=== PATIENT | male | born 1945 | race Two or more races ===

== ENCOUNTER 2017-09-18 14:19 | Inpatient (IN) | payer MEDICARE ==
[~2017-09-18] VITALS: Ht 180.3 cm; Wt 78.0 kg
[2017-09-18 14:46] LABS: BASOPHILS # (AUTO) 0.1 /CMM (0.0-0.2); BASOPHILS % (AUTO) 0.8 % (0.0-2.0); EOSINOPHILS # (AUTO) 0.4 /CMM (0.0-0.7); EOSINOPHILS % (AUTO) 4.1 % (0.0-6.0); HEMATOCRIT 44 % (39-51); HEMOGLOBIN 15.2 g/dL (13.5-17.5); LYMPHOCYTES # (AUTO) 1.3 /CMM (0.8-4.8); LYMPHOCYTES % (AUTO) 14.9 % (20.0-44.0); MEAN CORPUSCULAR HEMOGLOBIN 29 PG (26.0-33.0); MEAN CORPUSCULAR HGB CONC 34 g/dl (31.0-36.0); MEAN CORPUSCULAR VOLUME 86 fL (80-96); MONOCYTES # (AUTO) 0.5 /CMM (0.1-1.30); MONOCYTES % (AUTO) 5.8 % (2.0-12.0); NEUTROPHILS # (AUTO) 6.3 /CMM (1.8-8.9); NEUTROPHILS % (AUTO) 74.4 % (43.0-81.0); PLATELET COUNT (AUTO) 226 /CMM (150-450); RDW COEFFICIENT OF VARIATION 13.2 (11.5-15.0); RED BLOOD CELL COUNT(AUTO) 5.18 MIL/uL (4.5-6.0); WHITE BLOOD COUNT (AUTO) 8.6 K/uL (4.3-11.0)
[2017-09-18 14:56] LABS: CALCIUM, SERUM 9.6 mg/dL (8.5-10.1); CARBON DIOXIDE 24 mmol/L (21-32); CHLORIDE 106 mmol/L (98-107); CREATININE 1.3 mg/dL (0.6-1.3); GLUCOSE 158 mg/dL (74-106); POTASSIUM 4.2 mmol/L (3.5-5.1); SODIUM SERUM 139 mmol/L (136-145); UREA NITROGEN, BLOOD 36 mg/dL (7-18)
[2017-09-18 15:02] LABS: ALANINE AMINOTRANSFERASE 29 U/L (12-78); ALBUMIN 3.6 g/dL (3.4-5.0); ALKALINE PHOSPHATASE 74 U/L (46-116); ASPARTATE AMINOTRANSFERASE 29 U/L (15-37); BILIRUBIN,DIRECT 0.2 mg/dL (0.0-0.2); BILIRUBIN,TOTAL 0.4 mg/dL (0.2-1.0); TOTAL PROTEIN, SERUM 7.6 g/dL (6.4-8.2)
[2017-09-18 15:06] LABS: APPEARANCE,URINE Clear (CLEAR); BILIRUBIN,URINE SMALL (NEGATIVE); BLOOD, URINE Negative Ery/uL (NEGATIVE); COLOR,URINE Yellow (YELLOW); KETONES,URINE 15 (NEGATIVE); LEUKOCYTE ESTERASE ,URINE Negative (NEGATIVE); NITRITE, URINE Negative (NEGATIVE); PH,URINE 5.5 (5.0-8.0); PROTEIN,URINE Trace mg/dl (NEGATIVE); UGLUCOSE Negative (NEGATIVE); UROBILINOGEN,URINE 0.2 EU/dL (0.2)
[2017-09-18 15:15] LABS: BACTERIA,URINE Rare /HPF (None Seen); RBC,URINE 0-3 /HPF (0-2); SQUAMOUS EPITHELIAL CELL,UR Moderate /HPF (None Seen)
[2017-09-18] MEDS ORDERED: LORAZEPAM 1 MG TABLET PO ONE (15:30)
[2017-09-18] MEDS ORDERED: LORAZEPAM 1 MG TABLET ONE (15:48)
[2017-09-18] MEDS ORDERED: CRAN3875 PO (15:59)
[2017-09-18] MEDS ORDERED: CRAN425C6 PO (15:59)
[2017-09-18] MEDS ORDERED: CARV3.12 PO (15:59)
[2017-09-18] MEDS ORDERED: FAMO-131 PO (15:59)
[2017-09-18] MEDS ORDERED: ATOR40TA PO (15:59)
[2017-09-18] MEDS ORDERED: BENA40TA67 PO (15:59)
[2017-09-18] MEDS ORDERED: LAMO100T2 PO (15:59)
[2017-09-18] MEDS ORDERED: ASPI-1169 PO (15:59)
[2017-09-18] MEDS ORDERED: CITA10TA9 PO (15:59)
[2017-09-18] MEDS ORDERED: CLOP75TA15 PO (15:59)
[2017-09-18] MEDS ORDERED: ACET-73 PO (16:04)
[2017-09-18] MEDS ORDERED: OXYC-128 PO (16:04)
[2017-09-18] MEDS ORDERED: ACET325T53 PO ×2 (16:04→16:10)
[2017-09-18] MEDS ORDERED: ASCO-340 PO (16:10)
[2017-09-18] MEDS ORDERED: ONDA4TAB5 PO (16:10)
[2017-09-18] MEDS ORDERED: MULT-447 PO (16:10)
[2017-09-18] MEDS ORDERED: AMIN887L PO (16:10)
[2017-09-18] MEDS ORDERED: ZINC220C6 PO (16:10)
[2017-09-18] MEDS ORDERED: MAG30ORA2 PO (16:10)
[2017-09-18] MEDS ORDERED: clonazePAM 0.5 MG TABLET PO SCH (18:30)
[2017-09-18] MEDS ORDERED: ACETAMINOPHEN 325 MG TABLET PO PRN ×3 (18:30→19:00)
[2017-09-18] MEDS ORDERED: MAG HYDROX/AL HYDROX/SIMETH 30 ML UDC PO PRN ×2 (18:30→19:00)
[2017-09-18] MEDS ORDERED: clonazePAM 0.5 MG TABLET PO PRN (18:30)
[2017-09-18] MEDS ORDERED: MAGNESIUM HYDROXIDE 30 ML UDC PO PRN (18:30)
[2017-09-18 19:00] VITALS: BP 120/70
[2017-09-18] MEDS ORDERED: MISCELLANEOUS MED 1 EA EA PO PRN (19:00)
[2017-09-18] MEDS ORDERED: ONDANSETRON 4 MG TAB.RAPDIS PO PRN (19:00)
[2017-09-18 19:59] VITALS: BP 120/70
[2017-09-18] MEDS: ATORVASTATIN 40 MG TABLET PO SCH (21:21)
[2017-09-18] MEDS: LamoTRIgine 100 MG TABLET PO SCH (21:22)
[2017-09-18] MEDS: TEMAZEPAM 7.5 MG CAPSULE PO PRN (22:11)
[2017-09-19] MEDS: clonazePAM 0.5 MG TABLET PO PRN ×4 (02:21→21:24)
[2017-09-19] MEDS: CLOPIDOGREL BISULFATE 75 MG TABLET PO SCH (06:24)
[2017-09-19 07:20] LABS: ALANINE AMINOTRANSFERASE 31 U/L (12-78); ALBUMIN 3.6 g/dL (3.4-5.0); ALKALINE PHOSPHATASE 73 U/L (46-116); ASPARTATE AMINOTRANSFERASE 25 U/L (15-37); BILIRUBIN,TOTAL 0.6 mg/dL (0.2-1.0); CALCIUM, SERUM 9.6 mg/dL (8.5-10.1); CARBON DIOXIDE 25 mmol/L (21-32); CHLORIDE 104 mmol/L (98-107); CREATININE 1.2 mg/dL (0.6-1.3); GLUCOSE 97 mg/dL (74-106); POTASSIUM 3.5 mmol/L (3.5-5.1); SODIUM SERUM 141 mmol/L (136-145); TOTAL PROTEIN, SERUM 7.4 g/dL (6.4-8.2); UREA NITROGEN, BLOOD 32 mg/dL (7-18)
[2017-09-19 07:21] LABS: CHOLESTEROL 168 mg/dL (<200); HDL CHOLESTEROL 38 mg/dL (40-60); LDL 119 mg/dL (0-99); TRIGLYCERIDES 102 mg/dL (30-150)
[2017-09-19] MEDS: CARVEDILOL 3.125 MG TABLET PO SCH ×3 (07:30→16:47)
[2017-09-19 08:00] VITALS: BP 106/69
[2017-09-19] MEDS: FAMOTIDINE (20 MG) 20 MG TABLET PO SCH ×3 (08:18→16:47)
[2017-09-19] MEDS: ASPIRIN 81 MG TAB.CHEW PO SCH (08:18)
[2017-09-19] MEDS: ZINC SULFATE 220 MG CAPSULE PO SCH (08:18)
[2017-09-19] MEDS ORDERED: Medication Not On Formulary EA (Cran/Vitc/Mannose/Inulin/Brom (Uti-Stat Liquid) 30 ML) PO SCH (09:00)
[2017-09-19] MEDS ORDERED: BENAZEPRIL HCL 20 MG TABLET PO SCH (09:00)
[2017-09-19] MEDS: CITALOPRAM HYDROBROMIDE 10 MG TABLET PO SCH ×2 (15:30→17:35)
[2017-09-19 16:00] VITALS: BP 153/71
[2017-09-19] MEDS ORDERED: DIVALPROEX SODIUM 125 MG CAP.SPRINK PO SCH (16:00)
[2017-09-19] MEDS ORDERED: QUETIAPINE FUMARATE 100 MG TABLET PO SCH (17:00)
[2017-09-19 20:00] VITALS: BP 145/94
[2017-09-19] MEDS: ATORVASTATIN 40 MG TABLET PO SCH (21:18)
[2017-09-19] MEDS ORDERED: LamoTRIgine 25 MG TABLET PO SCH (22:00)
[2017-09-20] MEDS: TEMAZEPAM 7.5 MG CAPSULE PO PRN ×2 (00:23→23:35)
[2017-09-20] MEDS: clonazePAM 0.5 MG TABLET PO PRN ×2 (02:30→08:59)
[2017-09-20 08:00] VITALS: BP 133/58
[2017-09-20] MEDS: FAMOTIDINE (20 MG) 20 MG TABLET PO SCH ×2 (08:15→15:43)
[2017-09-20] MEDS: ZINC SULFATE 220 MG CAPSULE PO SCH (08:15)
[2017-09-20] MEDS: CLOPIDOGREL BISULFATE 75 MG TABLET PO SCH (08:15)
[2017-09-20] MEDS: CITALOPRAM HYDROBROMIDE 10 MG TABLET PO SCH (08:15)
[2017-09-20] MEDS: ASPIRIN 81 MG TAB.CHEW PO SCH (08:15)
[2017-09-20] MEDS: CARVEDILOL 3.125 MG TABLET PO SCH ×2 (08:16→15:41)
[2017-09-20] MEDS: DIVALPROEX SODIUM 250 MG TABLET.DR PO SCH ×2 (12:23→20:23)
[2017-09-20] MEDS: OLANZAPINE 5 MG TABLET PO SCH (12:23)
[2017-09-20 16:00] VITALS: BP 110/60
[2017-09-20 20:00] VITALS: BP 147/80
[2017-09-20] MEDS: ATORVASTATIN 40 MG TABLET PO SCH (21:01)
[2017-09-21] MEDS: clonazePAM 0.5 MG TABLET PO PRN (02:38)
[2017-09-21] MEDS: CLOPIDOGREL BISULFATE 75 MG TABLET PO SCH (05:34)
[2017-09-21 08:00] VITALS: BP 112/65
[2017-09-21] MEDS: CITALOPRAM HYDROBROMIDE 10 MG TABLET PO SCH (08:33)
[2017-09-21] MEDS: ASPIRIN 81 MG TAB.CHEW PO SCH (08:33)
[2017-09-21] MEDS: ZINC SULFATE 220 MG CAPSULE PO SCH (08:33)
[2017-09-21] MEDS: FAMOTIDINE (20 MG) 20 MG TABLET PO SCH ×2 (08:33→17:21)
[2017-09-21] MEDS: DIVALPROEX SODIUM 250 MG TABLET.DR PO SCH ×2 (08:33→21:07)
[2017-09-21] MEDS: CARVEDILOL 3.125 MG TABLET PO SCH ×2 (08:34→16:30)
[2017-09-21] MEDS: OLANZAPINE 5 MG TABLET PO SCH (08:38)
[2017-09-21 15:58] VITALS: BP 105/57
[2017-09-21 16:00] VITALS: BP 105/57
[2017-09-21 20:00] VITALS: BP 112/72
[2017-09-21] MEDS: ATORVASTATIN 40 MG TABLET PO SCH (21:07)
[2017-09-21] MEDS: TEMAZEPAM 7.5 MG CAPSULE PO PRN (21:33)
[2017-09-22] MEDS: CLOPIDOGREL BISULFATE 75 MG TABLET PO SCH (07:32)
[2017-09-22 08:00] VITALS: BP 131/69
[2017-09-22] MEDS: CITALOPRAM HYDROBROMIDE 10 MG TABLET PO SCH (08:45)
[2017-09-22] MEDS: FAMOTIDINE (20 MG) 20 MG TABLET PO SCH ×2 (08:45→16:41)
[2017-09-22] MEDS: DIVALPROEX SODIUM 250 MG TABLET.DR PO SCH ×2 (08:45→21:52)
[2017-09-22] MEDS: CARVEDILOL 3.125 MG TABLET PO SCH ×2 (08:46→16:42)
[2017-09-22] MEDS: ZINC SULFATE 220 MG CAPSULE PO SCH (08:46)
[2017-09-22] MEDS: ASPIRIN 81 MG TAB.CHEW PO SCH (08:46)
[2017-09-22] MEDS: OLANZAPINE 5 MG TABLET PO SCH (08:46)
[2017-09-22 16:00] VITALS: BP 130/79
[2017-09-22 20:00] VITALS: BP 119/73
[2017-09-22] MEDS: TEMAZEPAM 7.5 MG CAPSULE PO PRN (21:52)
[2017-09-22] MEDS: ATORVASTATIN 40 MG TABLET PO SCH (21:52)
[2017-09-23] MEDS: CLOPIDOGREL BISULFATE 75 MG TABLET PO SCH (06:01)
[2017-09-23 08:00] VITALS: BP 133/81
[2017-09-23] MEDS: ASPIRIN 81 MG TAB.CHEW PO SCH (08:21)
[2017-09-23] MEDS: OLANZAPINE 5 MG TABLET PO SCH (08:21)
[2017-09-23] MEDS: FAMOTIDINE (20 MG) 20 MG TABLET PO SCH ×2 (08:21→16:30)
[2017-09-23] MEDS: CITALOPRAM HYDROBROMIDE 10 MG TABLET PO SCH (08:21)
[2017-09-23] MEDS: CARVEDILOL 3.125 MG TABLET PO SCH ×2 (08:21→16:31)
[2017-09-23] MEDS: DIVALPROEX SODIUM 250 MG TABLET.DR PO SCH ×2 (08:21→16:30)
[2017-09-23] MEDS: ZINC SULFATE 220 MG CAPSULE PO SCH (08:21)
[2017-09-23] MEDS: clonazePAM 0.5 MG TABLET PO PRN (12:07)
[2017-09-23 16:00] VITALS: BP 114/81
[2017-09-23 19:31] VITALS: BP 124/79
[2017-09-23] MEDS: ATORVASTATIN 40 MG TABLET PO SCH (21:18)
[2017-09-23] MEDS: TEMAZEPAM 7.5 MG CAPSULE PO PRN (21:20)
[2017-09-24] MEDS: CLOPIDOGREL BISULFATE 75 MG TABLET PO SCH (06:22)
[2017-09-24] MEDS: CARVEDILOL 3.125 MG TABLET PO SCH ×2 (07:30→16:30)
[2017-09-24 08:00] VITALS: BP 113/56
[2017-09-24] MEDS: ZINC SULFATE 220 MG CAPSULE PO SCH (08:40)
[2017-09-24] MEDS: CITALOPRAM HYDROBROMIDE 10 MG TABLET PO SCH (08:40)
[2017-09-24] MEDS: ASPIRIN 81 MG TAB.CHEW PO SCH (08:40)
[2017-09-24] MEDS: OLANZAPINE 5 MG TABLET PO SCH (08:40)
[2017-09-24] MEDS: DIVALPROEX SODIUM 250 MG TABLET.DR PO SCH ×3 (08:40→15:57)
[2017-09-24] MEDS: FAMOTIDINE (20 MG) 20 MG TABLET PO SCH ×2 (08:40→15:57)
[2017-09-24] MEDS: clonazePAM 0.5 MG TABLET PO PRN ×2 (08:44→13:21)
[2017-09-24 16:00] VITALS: BP 139/88
[2017-09-24 20:00] VITALS: BP 101/64
[2017-09-24] MEDS: OLANZAPINE 2.5 MG TABLET PO SCH (21:48)
[2017-09-24] MEDS: ATORVASTATIN 40 MG TABLET PO SCH (21:48)
[2017-09-25] MEDS: TEMAZEPAM 7.5 MG CAPSULE PO PRN ×2 (01:18→22:52)
[2017-09-25] MEDS: CLOPIDOGREL BISULFATE 75 MG TABLET PO SCH (06:43)
[2017-09-25] MEDS: FAMOTIDINE (20 MG) 20 MG TABLET PO SCH ×2 (07:46→17:11)
[2017-09-25] MEDS: CARVEDILOL 3.125 MG TABLET PO SCH ×2 (07:47→16:30)
[2017-09-25 08:28] VITALS: BP 145/71
[2017-09-25] MEDS: OLANZAPINE 5 MG TABLET PO SCH (08:33)
[2017-09-25] MEDS: ZINC SULFATE 220 MG CAPSULE PO SCH (08:34)
[2017-09-25] MEDS: ASPIRIN 81 MG TAB.CHEW PO SCH (08:34)
[2017-09-25] MEDS: DIVALPROEX SODIUM 250 MG TABLET.DR PO SCH ×3 (08:34→17:11)
[2017-09-25] MEDS: CITALOPRAM HYDROBROMIDE 10 MG TABLET PO SCH (08:34)
[2017-09-25] MEDS: clonazePAM 0.5 MG TABLET PO PRN (12:22)
[2017-09-25 16:00] VITALS: BP 94/64
[2017-09-25 19:55] VITALS: BP 106/52
[2017-09-25] MEDS: OLANZAPINE 2.5 MG TABLET PO SCH (21:04)
[2017-09-25] MEDS: ATORVASTATIN 40 MG TABLET PO SCH (21:04)
[2017-09-26] MEDS: CLOPIDOGREL BISULFATE 75 MG TABLET PO SCH (06:26)
[2017-09-26] MEDS: FAMOTIDINE (20 MG) 20 MG TABLET PO SCH ×2 (07:17→16:13)
[2017-09-26] MEDS: CARVEDILOL 3.125 MG TABLET PO SCH ×2 (07:42→16:10)
[2017-09-26 07:48] VITALS: BP 113/59
[2017-09-26] MEDS: ASPIRIN 81 MG TAB.CHEW PO SCH (08:09)
[2017-09-26] MEDS: DIVALPROEX SODIUM 250 MG TABLET.DR PO SCH ×2 (08:09→16:13)
[2017-09-26] MEDS: OLANZAPINE 5 MG TABLET PO SCH (08:10)
[2017-09-26] MEDS: ZINC SULFATE 220 MG CAPSULE PO SCH (08:10)
[2017-09-26] MEDS: CITALOPRAM HYDROBROMIDE 10 MG TABLET PO SCH (08:10)
[2017-09-26 16:00] VITALS: BP 105/63
[2017-09-26] MEDS: clonazePAM 0.5 MG TABLET PO PRN (19:37)
[2017-09-26 20:00] VITALS: BP 103/56
[2017-09-26] MEDS: OLANZAPINE 2.5 MG TABLET PO SCH (21:55)
[2017-09-26] MEDS: ATORVASTATIN 40 MG TABLET PO SCH (21:55)
[2017-09-27] MEDS: CLOPIDOGREL BISULFATE 75 MG TABLET PO SCH (05:44)
[2017-09-27 08:00] VITALS: BP 128/71
[2017-09-27] MEDS: OLANZAPINE 5 MG TABLET PO SCH (08:56)
[2017-09-27] MEDS: DIVALPROEX SODIUM 250 MG TABLET.DR PO SCH ×2 (08:56→16:29)
[2017-09-27] MEDS: ZINC SULFATE 220 MG CAPSULE PO SCH (08:56)
[2017-09-27] MEDS: ASPIRIN 81 MG TAB.CHEW PO SCH (08:56)
[2017-09-27] MEDS: CITALOPRAM HYDROBROMIDE 10 MG TABLET PO SCH (08:56)
[2017-09-27] MEDS: FAMOTIDINE (20 MG) 20 MG TABLET PO SCH ×2 (08:59→16:28)
[2017-09-27 16:00] VITALS: BP 103/53
[2017-09-27 20:00] VITALS: BP 120/66
[2017-09-27] MEDS: OLANZAPINE 2.5 MG TABLET PO SCH (21:44)
[2017-09-27] MEDS: ATORVASTATIN 40 MG TABLET PO SCH (21:44)
[2017-09-27] MEDS: oxyCODONE/APAP (5/325 MG) 1 UDTAB TABLET PO PRN (21:59)
[2017-09-28] MEDS: CLOPIDOGREL BISULFATE 75 MG TABLET PO SCH (06:03)
[2017-09-28] MEDS: FAMOTIDINE (20 MG) 20 MG TABLET PO SCH ×2 (07:57→16:36)
[2017-09-28] MEDS: CITALOPRAM HYDROBROMIDE 10 MG TABLET PO SCH (07:57)
[2017-09-28] MEDS: DIVALPROEX SODIUM 250 MG TABLET.DR PO SCH ×2 (07:57→16:36)
[2017-09-28] MEDS: OLANZAPINE 5 MG TABLET PO SCH (07:57)
[2017-09-28] MEDS: ZINC SULFATE 220 MG CAPSULE PO SCH (07:57)
[2017-09-28] MEDS: ASPIRIN 81 MG TAB.CHEW PO SCH (07:57)
[2017-09-28 08:16] VITALS: BP 134/72
[2017-09-28 16:02] VITALS: BP 119/67
[2017-09-28] MEDS: clonazePAM 0.5 MG TABLET PO PRN (16:36)
[2017-09-28 20:00] VITALS: BP 100/54
[2017-09-28] MEDS: oxyCODONE/APAP (5/325 MG) 1 UDTAB TABLET PO PRN (21:57)
[2017-09-28] MEDS: OLANZAPINE 2.5 MG TABLET PO SCH (22:01)
[2017-09-28] MEDS: ATORVASTATIN 40 MG TABLET PO SCH (22:01)
[2017-09-29] MEDS: CLOPIDOGREL BISULFATE 75 MG TABLET PO SCH (06:20)
[2017-09-29 08:48] VITALS: BP 132/65
[2017-09-29] MEDS: CITALOPRAM HYDROBROMIDE 10 MG TABLET PO SCH (09:43)
[2017-09-29] MEDS: ZINC SULFATE 220 MG CAPSULE PO SCH (09:43)
[2017-09-29] MEDS: DIVALPROEX SODIUM 250 MG TABLET.DR PO SCH ×2 (09:43→17:57)
[2017-09-29] MEDS: ASPIRIN 81 MG TAB.CHEW PO SCH (09:43)
[2017-09-29] MEDS: FAMOTIDINE (20 MG) 20 MG TABLET PO SCH ×2 (09:43→17:57)
[2017-09-29] MEDS: OLANZAPINE 5 MG TABLET PO SCH (09:46)
[2017-09-29 15:40] VITALS: BP 150/90
[2017-09-29 20:20] VITALS: BP 106/50
[2017-09-29] MEDS: ATORVASTATIN 40 MG TABLET PO SCH (21:24)
[2017-09-29] MEDS: OLANZAPINE 2.5 MG TABLET PO SCH (21:24)
[2017-09-29 21:41] VITALS: BP 109/65
[2017-09-30] MEDS: clonazePAM 0.5 MG TABLET PO PRN (03:59)
[2017-09-30] MEDS: CLOPIDOGREL BISULFATE 75 MG TABLET PO SCH (06:23)
[2017-09-30 08:00] VITALS: BP 139/54
[2017-09-30] MEDS: OLANZAPINE 5 MG TABLET PO SCH (08:14)
[2017-09-30] MEDS: DIVALPROEX SODIUM 250 MG TABLET.DR PO SCH ×3 (08:14→17:02)
[2017-09-30] MEDS: ASPIRIN 81 MG TAB.CHEW PO SCH (08:14)
[2017-09-30] MEDS: ZINC SULFATE 220 MG CAPSULE PO SCH (08:14)
[2017-09-30] MEDS: CITALOPRAM HYDROBROMIDE 10 MG TABLET PO SCH (08:14)
[2017-09-30] MEDS: FAMOTIDINE (20 MG) 20 MG TABLET PO SCH ×2 (09:34→17:03)
[2017-09-30] MEDS ORDERED: Z GUARD REMEDY 2 OZ OINT TP PRN (11:30)
[2017-09-30 16:00] VITALS: BP 127/89
[2017-09-30 20:10] VITALS: BP 130/72
[2017-09-30] MEDS: ATORVASTATIN 40 MG TABLET PO SCH (21:44)
[2017-09-30] MEDS: OLANZAPINE 2.5 MG TABLET PO SCH (21:44)
[2017-09-30] MEDS: TEMAZEPAM 7.5 MG CAPSULE PO PRN (21:45)
[2017-10-01] MEDS: CLOPIDOGREL BISULFATE 75 MG TABLET PO SCH (06:57)
[2017-10-01 08:00] VITALS: BP 120/61
[2017-10-01] MEDS: ZINC SULFATE 220 MG CAPSULE PO SCH (08:13)
[2017-10-01] MEDS: FAMOTIDINE (20 MG) 20 MG TABLET PO SCH ×2 (08:14→16:55)
[2017-10-01] MEDS: OLANZAPINE 5 MG TABLET PO SCH (08:14)
[2017-10-01] MEDS: CITALOPRAM HYDROBROMIDE 10 MG TABLET PO SCH (08:14)
[2017-10-01] MEDS: DIVALPROEX SODIUM 250 MG TABLET.DR PO SCH ×3 (08:14→16:55)
[2017-10-01] MEDS: ASPIRIN 81 MG TAB.CHEW PO SCH (08:14)
[2017-10-01 16:03] VITALS: BP 111/61
[2017-10-01 20:00] VITALS: BP 106/70
[2017-10-01] MEDS: OLANZAPINE 2.5 MG TABLET PO SCH (21:13)
[2017-10-01] MEDS: ATORVASTATIN 40 MG TABLET PO SCH (21:14)
[2017-10-01 21:50] VITALS: BP 107/62
[2017-10-02] MEDS: CLOPIDOGREL BISULFATE 75 MG TABLET PO SCH (05:09)
[2017-10-02 08:00] VITALS: BP 143/76
[2017-10-02] MEDS: FAMOTIDINE (20 MG) 20 MG TABLET PO SCH (08:12)
[2017-10-02] MEDS: ZINC SULFATE 220 MG CAPSULE PO SCH (08:12)
[2017-10-02] MEDS: CITALOPRAM HYDROBROMIDE 10 MG TABLET PO SCH (08:12)
[2017-10-02] MEDS: OLANZAPINE 5 MG TABLET PO SCH (08:12)
[2017-10-02] MEDS: DIVALPROEX SODIUM 250 MG TABLET.DR PO SCH (08:12)
[2017-10-02] MEDS: ASPIRIN 81 MG TAB.CHEW PO SCH (08:12)
== END 2017-10-02 12:30 | DRG 885 ==
LOC: ER 14:20 → GPS 17:48
PROVIDERS: ADMIT Psychiatry & Neurology Psychiatry; ATTEND Psychiatry & Neurology Psychiatry
DX: F39 Unspecified mood [affective] disorder (principal); G93.40 Encephalopathy, unspecified; I69.354 Hemiplegia and hemiparesis following cerebral infarction affecting left non-dominant side; F03.90 Unspecified dementia, unspecified severity, without behavioral disturbance, psychotic disturbance, mood disturbance, and anxiety; R45.851 Suicidal ideations; D64.9 Anemia, unspecified; E78.5 Hyperlipidemia, unspecified; I25.10 Atherosclerotic heart disease of native coronary artery without angina pectoris; I10 Essential (primary) hypertension; H54.8 Legal blindness, as defined in USA; I25.2 Old myocardial infarction; F20.9 Schizophrenia, unspecified; F41.9 Anxiety disorder, unspecified; Z79.82 Long term (current) use of aspirin; Z79.899 Other long term (current) drug therapy; K21.9 Gastro-esophageal reflux disease without esophagitis; M19.90 Unspecified osteoarthritis, unspecified site; Z73.6 Limitation of activities due to disability; Z82.49 Family history of ischemic heart disease and other diseases of the circulatory system; R00.1 Bradycardia, unspecified; T44.7X5A Adverse effect of beta-adrenoreceptor antagonists, initial encounter; Y92.129 Unspecified place in nursing home as the place of occurrence of the external cause; I70.0 Atherosclerosis of aorta
CPT/HCPCS: 36415; 80048-TC; 80053-TC; 80061-TC; 80076-TC; 80164-TC; 80305; 81000-TC; 85025-TC; 87081-TC; 97116-TC; 97530-TC; A4606; Q0162; Z7610